=== PATIENT | female | born 1970 | race African-American/Black ===

== ENCOUNTER → 2017-04-10 | Outpatient (CLI) | payer BC ==
[2014-10-02 13:28] VITALS: BP 115/73
[~2017-04-10] MED LIST: ASCO500C PO; AZEL23SP NS; BUDE10.2 IH; CETI10CA PO; CITA20TA5 PO; CRAN500C6 PO; ESOM40CA PO; ESTROVEN ENER400 MCG PO; FELO5TAB PO; MONT10TA9 PO; MULT-245 PO; POTA99TA3 PO; TRIA1TAB3 PO
--- NOTE | 2017-04-10 16:26 | RAD ---
EXAM: DIGITAL SCREEN BILAT W/CAD HISTORY: Routine Screening. COMPARISON: 03/21/2016 Standard mammographic views are obtained of the bilateral breasts. This study was interpreted with the benefit of Computerized Aided Detection (CAD). FINDINGS: The breast parenchyma is heterogeneously dense, which could reduce sensitivity of mammography. Breast parenchyma level C.. There is no definite new suspicious spiculated mass or worrisome new cluster of microcalcifications. IMPRESSION: No definite new suspicious mass. BI-RADS CATEGORY: 1 NEGATIVE RECOMMENDED FOLLOW-UP: 12M 12 MONTH FOLLOW-UP PQRS compliance statement: Patient information was entered into a reminder system with a target due date for the next mammogram. Mammography is a sensitive method for finding small breast cancers, but it does not detect them all and is not a substitute for careful clinical examination. A negative mammogram does not negate a clinically suspicious finding and should not result in delay in biopsying a clinically suspicious abnormality. "Our facility is accredited by the [employer] Mammography [employer]."
== END | disposition home or self-care (01) ==
LOC: MAMMO 15:20
PROVIDERS: ATTEND Obstetrics & Gynecology
DX: Z12.31 Encounter for screening mammogram for malignant neoplasm of breast (principal); I10 Essential (primary) hypertension; J45.998 Other asthma
CPT/HCPCS: G0202; 77067

== ENCOUNTER → 2017-05-14 | Outpatient (CLI) | payer BC ==
[2014-10-02 13:28] VITALS: BP 115/73
--- NOTE | 2017-05-14 16:37 | RAD ---
NECK SOFT TISSUE Clinical Indication: Palpable right supraclavicular lump Comparison: None. Technique: Real-time grayscale and color Doppler ultrasound of the neck region of interest was obtained. Findings: In the area of patient's palpable lump, there is a 0.8 x 0.9 x 0.7 cm rounded hypoechoic structure which demonstrates intrinsic vascularity. Adjacent to this there is a 0.4 x 0.6 x 0.3 cm oval hypoechoic structure which has mild intrinsic vascularity. In the distal right neck there is a nonpathologically enlarged lymph node. IMPRESSION: In the area of patient's palpable lump, there is a 0.8 x 0.9 x 0.7 cm hypoechoic structure as well as an adjacent 0.4 x 0.6 x 0.3 cm hypoechoic oval structure. These do not definitively demonstrate fatty sruthi typical of lymph nodes. Findings could relate to reactive lymph nodes. These could be further evaluated with fine-needle aspiration, but they do have a risk of bleeding given the intrinsic vascularity and location. Alternatively, consider follow-up sonography in 3 months or sooner if clinically indicated by physical exam.
== END | disposition home or self-care (01) ==
LOC: US 14:39
PROVIDERS: ATTEND Nurse Practitioner Adult Health
DX: R22.1 Localized swelling, mass and lump, neck (principal)
CPT/HCPCS: 76536

== ENCOUNTER → 2018-04-12 | Outpatient (CLI) | payer OTHER ==
[2014-10-02 13:28] VITALS: BP 115/73
[~2018-04-12] MED LIST changes: -CITA20TA5 PO; +CITA20TA6 PO
--- NOTE | 2018-04-12 09:56 | RAD ---
Indication: Right Neck mass TECHNIQUE: Grayscale and color Doppler images of the right neck COMPARISON: Previous exam from 05/14/2017. FINDINGS: There is a 0.8 x 0.7 x 0.9 cm, previously 0.9 x 0.7 x 0.8 cm well-circumscribed hypoechoic lesion in the right neck just above the clavicle with central vascularity. There is no posterior shadowing but there is mild posterior acoustic enhancement. Another 0.6 x 0.4 x 0.6 cm, previously 0.4 x 0.6 x 0.3 cm oval-shaped hypoechoic lesion is seen with trace vascularity adjacent to the above-mentioned lesion. 1.4 x 1.5 x 1.2 cm, previously 0.8 x 0.9 x 0.3 cm morphologically normal-appearing lymph node with central fatty hilum is seen in the right neck in the supraclavicular soft tissue. IMPRESSION: Few lymph nodes in the right supraclavicular soft tissue/neck base with interval change in size as described above. Electronically signed by: Rodrigo Gage DO (04/12/2018 9:53 AM) [facility]
== END | disposition home or self-care (01) ==
LOC: US 07:58
PROVIDERS: ATTEND Surgery
DX: R22.1 Localized swelling, mass and lump, neck (principal)
CPT/HCPCS: 76536

== ENCOUNTER → 2018-04-12 | Outpatient (CLI) | payer OTHER ==
[2014-10-02 13:28] VITALS: BP 115/73
--- NOTE | 2018-04-12 09:30 | RAD ---
History: Routine screening. Technique: Bilateral digital mammographic routine views were obtained with CAD - computer aided detection. Comparison: Previous mammogram from 2016 2015. Findings: Breast Tissue Density C: The breasts are heterogeneously dense which may obscure small masses. The skin and nipples are within normal limits. There are no suspicious masses, microcalcifications or areas of architectural distortion. Impression: No mammographic evidence of malignancy. Stable mammogram. BI-RADS category 1: Negative. Continue annual screening. A mammogram does not have 100% sensitivity and therefore a negative imaging study should not delay further work up of a suspicious abnormality. The patient will receive a letter with the results in the mail. Patient information is entered into the reminder system with a target due date for the next screening mammogram. The patient will receive a reminder. "Our facility is accredited by the [employer] Mammography [employer]."
== END | disposition home or self-care (01) ==
LOC: MAMMO 08:07
PROVIDERS: ATTEND Family Medicine
DX: Z12.31 Encounter for screening mammogram for malignant neoplasm of breast (principal)
CPT/HCPCS: 77067

== ENCOUNTER → 2019-04-13 | Outpatient (CLI) | payer BC, OTHER ==
[2014-10-02 13:28] VITALS: BP 115/73
[~2019-04-13] MED LIST changes: +MONT10TA80 PO; -MONT10TA9 PO
--- NOTE | 2019-04-14 10:14 | RAD ---
DATE: 04/13/2019 8:20 AM EXAM: DIGITAL SCREEN BILAT W/CAD HISTORY: Screening mammograms COMPARISON: April 12, 2018 and April 10, 2017 Bilateral CC and MLO views of the breasts were performed. This study was interpreted with the benefit of Computerized Aided Detection (CAD). FINDINGS: Breast Density: HETERO The breast parenchyma Is heterogeneously dense, which could reduce sensitivity of mammography. Breast parenchyma level C Focal asymmetry within the left breast 9:00 position approximately 8.8 cm from the nipple with suggestion of architectural distortion and microcalcifications. eft breast skin lesions again noted, unchanged. No new suspicious microcalcifications, architectural distortion or mass within the right breast. The visualized axillae are unremarkable. IMPRESSION: Focal asymmetry within the left breast 9:00 position with suggestion of architectural distortion. Recommend spot CC and MLO compression views. BI-RADS CATEGORY: 0 INCOMPLETE: NEEDS ADDITIONAL IMAGING EVALUATION AND/OR PRIOR MAMMOGRAMS FOR COMPARISON. RECOMMENDED FOLLOW-UP: ADD ADDITIONAL IMAGING. The patient will be contacted to return for additional imaging and a supplemental report will follow. PQRS compliance statement: Patient information was entered into a reminder system. Mammography is a sensitive method for finding small breast cancers, but it does not detect them all and is not a substitute for careful clinical examination. A negative mammogram does not negate a clinically suspicious finding and should not result in delay in biopsying a clinically suspicious abnormality. "Our facility is accredited by the [employer] Mammography [employer]."
== END | disposition home or self-care (01) ==
LOC: MAMMO 08:21
PROVIDERS: ATTEND Family Medicine
DX: Z12.31 Encounter for screening mammogram for malignant neoplasm of breast (principal); N64.89 Other specified disorders of breast
CPT/HCPCS: 77067

== ENCOUNTER → 2019-04-25 | Outpatient (CLI) | payer BC ==
[2014-10-02 13:28] VITALS: BP 115/73
--- NOTE | 2019-04-25 14:22 | RAD ---
DATE: 04/25/2019 EXAM: DIGITAL DIAGNOSTIC LT HISTORY: Abnormal mammogram COMPARISON: 04/10/2017, 04/12/2018, 04/13/2019 mammographic exams This study was interpreted with the benefit of Computerized Aided Detection (CAD). Breast Density: HETERO The breast parenchyma is heterogenously dense, which could reduce sensitivity of mammography. Breast parenchyma level C. FINDINGS: No suspicious persistent mass or asymmetry identified on spot compression imaging of the left upper central breast. No suspicious calcifications noted. IMPRESSION: Stable BI-RADS CATEGORY: 1 NEGATIVE RECOMMENDED FOLLOW-UP: 12M 12 MONTH FOLLOW-UP PQRS compliance statement: Patient information was entered into a reminder system with a target due date for the next mammogram. Mammography is a sensitive method for finding small breast cancers, but it does not detect them all and is not a substitute for careful clinical examination. A negative mammogram does not negate a clinically suspicious finding and should not result in delay in biopsying a clinically suspicious abnormality. "Our facility is accredited by the [employer] Mammography [employer]."
== END | disposition home or self-care (01) ==
LOC: MAMMO 09:55
PROVIDERS: ATTEND Family Medicine
DX: R92.8 Other abnormal and inconclusive findings on diagnostic imaging of breast (principal)
CPT/HCPCS: 77065

== ENCOUNTER → 2020-04-16 | Outpatient (CLI) | payer BC ==
[2014-10-02 13:28] VITALS: BP 115/73
[~2020-04-16] MED LIST changes: -FELO5TAB PO; +FELO5TAB4 PO
--- NOTE | 2020-04-16 09:26 | RAD ---
EXAM: Bilateral screening mammogram. HISTORY: 50-year-old female presents for screening mammography. TECHNIQUE: Full-field digital craniocaudal and mediolateral oblique views of both breasts are obtained for evaluation. Computer aided detection with [employer] software version 9.3 was applied. COMPARISON: 04/25/2019 and 04/13/2019 BREAST PARENCHYMAL DENSITY: Level C - Heterogeneously dense. FINDINGS: There is no new suspicious mass, microcalcification or region of architectural distortion. There are few stable circumscribed nodular densities within the left breast. There are stable areas of asymmetry bilaterally when allowing for differences in patient positioning and compression technique. IMPRESSION: BI-RADS Category 2: Benign finding(s). RECOMMENDATION: Annual mammography is recommended. If your mammogram demonstrates that you have dense breast tissue, which could hide abnormalities, and if you have other risk factors for breast cancer that have been identified, you might benefit from supplemental screening tests that may be suggested by your ordering physician. Dense breast tissue, in and of itself, is a relatively common condition. This information is not provided to cause undue concern, but rather to raise your awareness and to promote discussion with your physician regarding the presence of other risk factors, in addition to dense breast tissue. A report of your mammography results will be sent to you and your physician. You should contact your physician if you have any questions or concerns regarding this report. Mammography is a sensitive method for finding small breast cancers, but it does not detect them all and is not a substitute for careful clinical examination. A negative mammogram does not negate a clinically suspicious finding and should not result in delay in biopsying a clinically suspicious abnormality. PQRS compliance statement - Patient information was entered into a reminder system with a target due date for the next mammogram. "Our facility is accredited by the [employer] Mammography [employer]." Electronically signed by: Juli Chaparro MD (04/16/2020 9:23 AM) [id number]
== END ==
LOC: MAMMO 08:23
PROVIDERS: ATTEND Family Medicine
DX: Z12.31 Encounter for screening mammogram for malignant neoplasm of breast (principal)
CPT/HCPCS: 77067

== ENCOUNTER → 2021-04-22 | Outpatient (CLI) | payer BC ==
[2014-10-02 13:28] VITALS: BP 115/73
--- NOTE | 2021-04-25 08:21 | RAD ---
CLINICAL INDICATION: KALE SHAW, who is 51 years of age, presents for diagnostic evaluation for pain in the right breast. COMPARISON: Prior mammographic imaging dating back to 05/19/2014 TECHNIQUE: Bilateral full field craniocaudal and mediolateral oblique images were obtained using digi maria elena technique and also analyzed with computer-aided detection software. In addition diagnostic imagin g of the right breast was performed with spot compression cc view of the right breast. BREAST COMPOSITION: The breast tissue is heterogenously dense, which could obscure detection of small masses. MAMMOGRAM FINDINGS: No suspicious left breast mass, calcification or architectural distortion. Focal asymmetry is seen in the inferior, medial right breast approximately 5-6 cm from the right nipp le. The focal asymmetry persisted on the spot compression images. No suspicious right breast architec tural distortion or microcalcification. The visualized axilla appears unremarkable. IMPRESSION: 1. Indeterminate right breast focal asymmetry RECOMMENDATION: Indeterminate right breast focal asymmetry for which sonographic evaluation is recommended. At that t malvin the region of patient's focal pain can also be further assessed by ultrasound. BIRADS 0: INCOMPLETE - NEED ADDITIONAL IMAGING EVALUATION AND/OR PRIOR MAMMOGRAMS FOR COMPARISON. Electronically signed by: Yohan Welsh MD (04/25/2021 8:18 AM) [id number]
== END ==
LOC: MAMMO 08:28
PROVIDERS: ATTEND Obstetrics & Gynecology
DX: Z01.419 Encounter for gynecological examination (general) (routine) without abnormal findings (principal); N64.4 Mastodynia
CPT/HCPCS: 77066